=== PATIENT | female | born 1945 | race Caucasian/White ===

== ENCOUNTER 2020-02-20 09:30 | Inpatient (IN) | payer OTHER ==
[~2020-02-20] VITALS: Ht 152.4 cm; Wt 59.0 kg
[~2020-02-20 09:30] MED LIST: CEFADROXIL500 MG PO; HYZAAR 100-121 UDTAB PO; PERCOCET 5/321 UDTAB PO; PROTONIX40 MG PO; XARELTO10 MG PO
[2020-02-20] MEDS ORDERED: PLAVIX75 MG PO (10:39)
[2020-02-20] MEDS ORDERED: COZAAR100 MG PO (10:40)
[2020-02-20] MEDS ORDERED: NORVASC10 MG PO (10:40)
[2020-02-20] MEDS ORDERED: ASPIR 8181 MG PO (10:40)
[2020-02-27] MEDS ORDERED: FUROSEMIDE20 MG (07:55)
[2020-02-27] MEDS ORDERED: ALPRAZOLAM2 MG (07:55)
[2020-02-27] MEDS ORDERED: PANTOPRAZOLE SO40 MG (07:56)
[2020-02-27] MEDS ORDERED: FENOFIBRATE145 MG (07:56)
[2020-02-27] MEDS ORDERED: MELOXICAM15 MG (07:56)
[2020-02-27] MEDS ORDERED: SIMVASTATIN20 MG (07:56)
[2020-02-27] MEDS ORDERED: GABAPENTIN100 M2 (07:56)
[2020-02-29] MEDS ORDERED: ELIQUIS2.5 MG PO (15:58)
[2020-02-29] MEDS ORDERED: PERCOCET 5-3251 EACH PO (15:58)
[2020-02-29] MEDS ORDERED: DUI500 PO (15:58)
== END 2020-02-29 20:31 | disposition home or self-care (01) | DRG 470 ==
LOC: O/R 02-27 05:20 → SURG 02-27 05:20 → SURH 02-27 07:00 → SURG 02-27 10:33
PROVIDERS: ADMIT Orthopaedic Surgery; ATTEND Orthopaedic Surgery
PROC: 0MNN0ZZ Release Right Knee Bursa and Ligament, Open Approach (ICD-10-PCS; 2020-02-27)
PROC: 0SRC0JZ Replacement of Right Knee Joint with Synthetic Substitute, Open Approach (ICD-10-PCS; principal; 2020-02-27 07:00)
DX: M17.11 Unilateral primary osteoarthritis, right knee (principal); M80.00XA Age-related osteoporosis with current pathological fracture, unspecified site, initial encounter for fracture; D62 Acute posthemorrhagic anemia; M85.461 Solitary bone cyst, right tibia and fibula; M22.11 Recurrent subluxation of patella, right knee; I10 Essential (primary) hypertension